=== PATIENT | female | born 1970 | race Caucasian/White ===

== ENCOUNTER 2018-06-05 07:00 | Day surgery (SDC) | payer BC ==
[~2018-06-05 07:00] MED LIST: ACETAMINOPHEN 1,000 MG/100 ML BTL IV ONE; FAMOTIDINE 20MG TABLET PO ONE; METOCLOPRAMIDE 10 MG TABLET PO ONE; SCOPOLAMINE 1 PATCH TDSY TD ONE
[2018-06-05] MEDS ORDERED: KETAMINE HCL 100MG/1ML VIAL INJ ONE (07:01)
[2018-06-05] MEDS ORDERED: BETAMETHASONE 6 MG/1 ML 5ML VIAL IM ONE (07:01)
[2018-06-05] MEDS ORDERED: OXYCODONE HCL/APAP 5MG/325MG TABLET PO ONE (07:01)
[2018-06-05] MEDS ORDERED: MIDAZOLAM HCL 2MG/2ML VIAL IV ONE (07:01)
[2018-06-05] MEDS ORDERED: PROPOFOL 10 MG/ML VIAL IV ONE (07:01)
[2018-06-05] MEDS ORDERED: BUPIVACAINE 0.25% W/EPI MPF 30ML VIAL IVP ONE (07:01)
[2018-06-05] MEDS ORDERED: KETOROLAC 30 MG/ML VIAL IVP ONE (07:01)
--- NOTE | 2018-06-05 13:10 | Operative Note ---
DATE OF SURGERY: 06/05/2018 Surgeon: Victor Hugo Long DO PREOPERATIVE DIAGNOSIS: Adhesive capsulitis of the left shoulder. POSTOPERATIVE DIAGNOSIS: Adhesive capsulitis of the left shoulder. OPERATION: 1. Manipulation under anesthesia, left shoulder. 2. Injection, left shoulder. DESCRIPTION OF PROCEDURE: This 47-year-old female was taken to the operating room and placed in the supine position on the operating room table. General anesthetic was administered. After satisfactory anesthetic, the shoulder was taken through range of motion and found to be restricted in forward flexion at approximately 110 degrees and approximately 80 degrees of abduction. With the left shoulder stabilized, we gently manipulated to 180 degrees of flexion with no difficulty. Resistance was felt and the cicatrix was disrupted. She was taken to 120 degrees of abduction, 90 degrees of external rotation, 90 degrees of internal rotation, approximately 60 degrees of extension, full crossover with no further restriction noted. After the shoulder had been manipulated, we again took it through range of motion and no additional findings were present. The anterior aspect of the shoulder was prepped and we easily advanced a 22-gauge spinal needle into the glenohumeral joint. We injected 2 mL of Celestone Soluspan and 4 mL of 0.25% Marcaine plain, and sterile dressings were applied. The patient was taken to the recovery area in satisfactory condition. GROSS PATHOLOGY: This patient demonstrated restriction of range of motion at approximately 110 degrees of forward flexion and abduction to 80 degrees which was manipulated as described above. CC: Sandra DUTTA
== END 2018-06-05 09:50 | disposition home or self-care (01) ==
LOC: SUR 07:00
PROVIDERS: ATTEND Orthopaedic Surgery
DX: M75.02 Adhesive capsulitis of left shoulder (principal)
CPT/HCPCS: 81025; J1885